=== PATIENT | male | born 1990 | race Caucasian/White ===

== ENCOUNTER 2016-12-13 11:00 | Inpatient (IN) | payer OTHER ==
--- NOTE | ~2016-12-13 | HP ---
Unit #: [id number] #: [id number] Patient: ANAND MATTSON [id number] [place] [address] [id number] MR#: [id number] NAME: ANAND MATTSON ROOM: P186 Age: 26 Sex: M Admission Date: 12/13/2016 : 1990 Attending Physician: Belkys Diallo M.D. Admitting Physician: Belkys Diallo M.D. Primary Care Physician: Generic Doctor Not In System HISTORY AND PHYSICAL HISTORY OF PRESENT ILLNESS Anand is a 26 year old admitted to [facility] because of continued drug use. He has had other admissions to this facility for treatment of the same. PAST MEDICAL HISTORY Long history of poly-illicit substance abuse. PAST SURGICAL HISTORY Nothing reported. ALLERGIES Ondansetron (hives). SOCIAL HISTORY Smokes one pack per day. Denies alcohol. Admits to long history of poly illicit substance abuse. FAMILY HISTORY Medically noncontributory. REVIEW OF SYSTEMS CONSTITUTIONAL: No fever or chills. HEENT: Denies any sore throat, ear pain or runny nose. CARDIOVASCULAR: Denies chest pain, irregular heart rhythm or palpitations. CHEST: Denies shortness of breath or cough. No hemoptysis. GASTROINTESTINAL: Denies nausea, vomiting, diarrhea or chronic constipation. ENDOCRINE: Denies history of increased thirst or urination. No recent significant weight loss or gain. GENITOURINARY: Denies dysuria, frequency, or hematuria. SKIN: Denies any rashes. HEMATOLOGIC: Denies history of increased bleeding or bruising. MUSCULOSKELETAL: Denies any hot, swollen joints. No generalized muscle pain. NEUROLOGIC: Denies problems with vision or speech. No frequent, severe headaches. No numbness, tingling or weakness in any extremities. Denies loss of bladder or bowel control. CURRENT MEDICATIONS Detox protocol. PHYSICAL EXAMINATION GENERAL: Alert, well nourished. No apparent distress. Unit #: [id number] #: [id number] Patient: ANAND MATTSON VITAL SIGNS: Blood pressure 110/70, heart rate 56, respirations 16, and temperature 98.6. WEIGHT: 148. HEIGHT: 5 feet 7 inches. SKIN: Warm and dry without rash or lesion. HEENT: Normocephalic. TMs not viewed. Oral and nasal passages clear. Conjunctivae clear. PERRLA. EOMs intact. NECK: Supple without lymphadenopathy or thyromegaly. HEART: Regular rate and rhythm without murmur. LUNGS: Clear. ABDOMEN: Soft, nontender. : Not done. EXTREMITIES: No evidence of cyanosis, clubbing or edema. Moves all without focal deficit. NEUROLOGICAL: Grossly within normal limits. Cranial Nerves: II: Visual banks are intact. III, IV AND : Extraocular movements are intact. Pupils are equal, round and reactive to light. V: Facial sensation is grossly normal. VII: Facial movements and expression are normal. VIII: Auditory acuity grossly intact. IX, X: Uvula is midline. Phonation is normal. XI: Patient shrugs shoulders and turns head normally. XII: Tongue protrudes in the midline. Sensory and Motor Function: Sensory and motor sensation is grossly normal. Motor: moves all extremities well. Coordination: Gait is normal. Deep Tendon Reflexes: Intact. IMPRESSION Psychiatric admission. RECOMMENDATIONS PSYCHIATRIC: Per psychiatrist. MEDICAL: I see no contraindication to participate in this facility's activities. MEDICAL PROGNOSIS Good. MEDICAL CONDITION Stable. Dictated by... Usha Saleh PDanielADaniel-Rohan. for Katey Chang/mary TD: 12/14/2016 12:33 JOB #: [id number] Unit #: [id number] #: [id number] Patient: ANAND MATTSON HISTORY AND PHYSICAL Page 1 of 1 X Usha Saleh X HISTORY AND PHYSICAL
--- NOTE | ~2016-12-13 | DS ---
Unit #: [id number] #: [id number] Patient: [facility] PAREKH [id number] [facility] [place] [place] [address] [id number] MR#: [id number] NAME: ANAND PAREKH ROOM: [facility]0 Age: 26 Sex: M Admission Date: 12/13/2016 : 1990 Discharge Date: 12/16/2016 Attending Physician: Belkys Diallo M.D. Primary Care Physician: Generic Doctor Not In System DISCHARGE SUMMARY IDENTIFYING DATA Mr. Parekh is a 26-year-old single white male who is a resident of [place], [place] and was self-referred to the hospital on a voluntary basis. DISCHARGE DIAGNOSES Psychiatric: Major depressive disorder, recurrent, moderate, without psychotic features; opioid dependence, moderate and acute withdrawals. Medical: None. Stressors: Mild psychosocial stressors. HISTORY OF PRESENT ILLNESS Please see initial psychiatric evaluation for details. PAST PSYCHIATRIC HISTORY Please see initial psychiatric evaluation for details. PAST MEDICAL HISTORY Please see initial psychiatric evaluation for details. HOSPITAL COURSE The patient was admitted to the adult chemical dependency unit at [facility] [place] and was oriented to the hospital environment. Routine p.r.n. medications were initiated, and he was started on the opioid detox protocol. However, the patient was seen to be exhibiting very negative attitude stating that he falsified information to getting here and that he is not really suicidal and he does not want to be here and that he is not interested in detox and just wants to go to the methadone clinic and was denying any suicidal ideations, intent, or plan with no motivation towards treatment or intent towards sobriety, and as such, it was decided that he will be discharged home and will continue treatment on an outpatient basis. DISCHARGE MEDICATIONS None. DISCHARGE CONDITION Stable. PROGNOSIS Guarded. Dictated by... Belkys Diallo M.D. Unit #: [id number] #: [id number] Patient: ANAND PAREKH IAA/modl TD: 12/16/2016 06:47 JOB #: [id number] DISCHARGE SUMMARY Page 1 of 1 X Belkys Diallo MD X DISCHARGE SUMMARY
--- NOTE | ~2016-12-13 | PN ---
Unit #: [id number] #: [id number] Patient: ANAND PAREKH [id number] [facility] [address] [place] [address] [id number] MR#: [id number] NAME: ANAND PAREKH ROOM: P210 Age: 26 Sex: M Admission Date: 12/13/2016 : 1990 Attending Physician: Belkys Diallo M.D. Admitting Physician: Belkys Diallo M.D. Primary Care Physician: Ras Doctor Not In System [facility] PROGRESS NOTES DATE 12/14/2016 DISCUSSION Mr. Parekh is a 26-year-old, white male with substance abuse and mood disorder who was seen today and chart was reviewed and case was discussed with the staff. He reports he wants to leave and that he has changed his mind and that he wants to go to a methadone clinic and inquired about coming to the hospital with depression and suicidal thoughts, he stated that he lied about (1) manipulative and poor historian and as such remains a poor prognosis. Meanwhile, he has been taking the medication and tolerating them fairly well. has been doing fairly well with no agitation, irritability or behavioral problems and has been cooperative with the treatment recommendations. He has been taking the medication and tolerating them fairly well maintain him on his detox protocol and we will monitor his response and make further adjustments as needed. Dictated by... Katey Cormier/julio TD: 12/15/2016 00:27 JOB #: [id number] [facility] PROGRESS NOTES Page 1 of 1 X Belkys Diallo MD PROGRESS NOTE
--- NOTE | ~2016-12-13 | PA ---
Unit #: [id number] #: [id number] Patient: [facility] PAREKH [id number] [facility] [address] [place] [address] [id number] MR#: [id number] NAME: ANAND PAREKH ROOM: P210 Age: 26 Sex: M Admission Date: 12/13/2016 : 1990 Date of Assessment: 12/13/2016 Attending Physician: Belkys Diallo M.D. Admitting Physician: Belkys Diallo M.D. Primary Care Physician: Generic Doctor Not In System PSYCHIATRIC ASSESSMENT DATE OF SERVICE 12/13/2016. IDENTIFYING DATA Mr. Parekh is a 26-year-old single white male, who is a resident of [place], [place], and was self-referred to the hospital on a voluntary basis. CHIEF COMPLAINT "I have been trying to kill myself about a week ago." HISTORY OF PRESENT ILLNESS Mr. Parekh is a 26-year-old white male with history of substance abuse and mood disorder, who was self-referred to the hospital stating that he has been having suicidal thoughts and "it started because I'm missing days at work. I'm sick of this. I have been using drugs. I overdosed last week, but I did not go to the hospital, my sister revived me. 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 SUBSTANCE ABUSE HISTORY The patient reports history of experimentation with alcohol and methamphetamine, but opioids particularly IV heroin has been his drug of choice as he reports that he has been using 1 to 1.5 g of IV heroin on a daily basis. PAST PSYCHIATRIC HISTORY The patient has had a history of multiple inpatient chemical dependency treatments including being at [facility], at [facility], at [facility] and as well as at [facility], and review of the medical records indicate that currently he is not active in any treatment program, is not seeing a psychiatrist, and is not taking any psychotropic medications. ALLERGIES Zofran. Unit #: [id number] #: [id number] Patient: ANAND PAREKH PERSONAL AND SOCIAL HISTORY A 26-year-old white male, who reports that he is single, unemployed, and lives with his sister and has poor social support system. MENTAL STATUS EXAMINATION Young white male, who was casually dressed with fair personal hygiene, appears to be in no acute distress or discomfort. He was awake and alert on interaction with intact orientation to time, place, and person. His mood was anxious and depressed with a congruent affect. His speech was slow and restricted in content. His thought processes were disorganized with some looseness of associations and flight of ideas and suicidal ideations. His insight and judgment remain significantly impaired. DIAGNOSTIC IMPRESSION Psychiatric: Major depressive disorder, recurrent, moderate, without psychotic features and opioid dependence, moderate, in acute withdrawals. Medical: None. Stressors: Moderate psychosocial stressors. TREATMENT PLAN 1. The patient has presented with a history of mood disorder and substance abuse and dependence and has been decompensating and will need inpatient hospitalization for safety and stabilization. We will start him on detox protocol. We will monitor his response and make further adjustments as needed. 2. Supportive therapy was provided to the patient. 3. Safe, structured, and nourishing environment will be provided. ESTIMATED LENGTH OF STAY 5 to 7 days. ABILITY TO HELP SELF Limited. WILLINGNESS TO HELP SELF The patient appears to be willing to help self. STRENGTHS 1. Communicative. 2. Cooperative. PROBLEMS 1. Chronic dysphoric symptoms. 2. Poor social support system. DISCHARGE CRITERIA This will be contingent upon the patient's ability to show resolution of his depression and anxiety and his ability to stay safe to himself, particularly after discharge from the hospital. Dictated by... Katey Cormier/bob TD: 12/14/2016 17:55 JOB #: [id number] Unit #: [id number] #: [id number] Patient: ANAND PAREKH PSYCHIATRIC ASSESSMENT Page 1 of 1 X Belkys Diallo MD PSYCHIATRIC ASSESSMENT
--- NOTE | ~2016-12-13 | PN ---
Unit #: [id number] #: [id number] Patient: ANAND PAREKH [id number] [facility] [address] [place] [address] [id number] MR#: [id number] NAME: ANAND PAREKH ROOM: P210 Age: 26 Sex: M Admission Date: 12/13/2016 : 1990 Attending Physician: Belkys Diallo M.D. Admitting Physician: Belkys Diallo M.D. Primary Care Physician: Generic Doctor Not In System [facility] PROGRESS NOTES DATE 12/15/2016 DISCUSSION Mr. Parekh is a 26-year-old, white male who was seen today and chart was reviewed and case was discussed with the staff. He has been insisting on pushing on leaving and has been making statements that he falsified information (1)____ stating that he was suicidal just so he can get in but that he was not really suicidal and that he made an attempt to AWOL from the unit and got off of the unit through the doors and then a code was called and he was dropped back and has been showing very poor motivation towards treatment not feeling wanting to stay in treatment as we will consider doing discharge planning tomorrow. Dictated by... Katey Cormier/julio TD: 12/16/2016 02:52 JOB #: [id number] [facility] PROGRESS NOTES Page 1 of 1 X Belkys Diallo MD X PROGRESS NOTE
[2016-12-14 12:37] LABS: URINE APPEARANCE CLEAR; URINE BILIRUBIN NEG (NEG); URINE BLOOD NEG (NEG); URINE COLOR YELLOW; URINE GLUCOSE NEG (NEG); URINE KETONE NEG (NEG); URINE LEUKOCYTE ESTERASE NEG (NEG); URINE NITRATE NEG (NEG); URINE PROTEIN NEG (NEG); URINE SPECIFIC GRAVITY 1.008 (1.003-1.035); URINE UROBILINOGEN 0.2 MG/DL (NEG)
[2016-12-14 13:17] LABS: AMPHETAMINE NEG (NEG); BARBITURATES NEG (NEG); BENZODIAZEPINES NEG (NEG); COCAINE NEG (NEG); MARIJUANA NEG (NEG); OPIATES POS (NEG); TRICYCLIC ANTIDEPRESSANTS NEG (NEG); U METHADONE NEG (NEG)
== END 2016-12-16 08:00 | disposition home or self-care (01) | DRG 885 ==
LOC: P2S 12:36 → P1E 12:36 → POF 22:32 → P1E 22:34 → P2S 12-14 13:04
PROVIDERS: Psychiatry & Neurology Psychiatry
PROC: HZ2ZZZZ Detoxification Services for Substance Abuse Treatment (ICD-10-PCS; principal; 2016-12-13)
DX: F33.1 Major depressive disorder, recurrent, moderate (principal); F11.23 Opioid dependence with withdrawal; F17.210 Nicotine dependence, cigarettes, uncomplicated
CPT/HCPCS: 80307; 81003